=== PATIENT | female | born 1985 | race Asian ===

== ENCOUNTER 2021-03-22 07:42 | Inpatient (IN) ==
[2021-03-22] MEDS ORDERED: OXYTOCIN 30 UNITS/500 ML BAG IV PRN ×3 (08:04→18:34)
[2021-03-22] MEDS ORDERED: DEXTROSE 5% 1,000 ML IV PRN (08:06)
[2021-03-22] MEDS ORDERED: SODIUM CHLORIDE 0.9% 1000ML 1,000 ML IV PRN (08:06)
[2021-03-22] MEDS ORDERED: DEXTROSE 50% 50 ML SYRINGE IV PRN (08:06)
[2021-03-22] MEDS ORDERED: INSULIN REGULAR 250 UNITS in SODIUM CHLORIDE 0.9% 247.5 ML IV PRN ×3 (08:15→11:06)
[2021-03-22 08:37] LABS: Hematocrit (blood only) 37.4 % (37-47); Hemoglobin 12.8 g/dL (12.0-16.0); Mean Corpuscular Hemoglobin 33.3 pg (25-34); Mean Corpuscular Hgb Conc 34.2 g/dL (32-36); Mean Corpuscular Volume 97.4 fL (80-100); Mean Platelet Volume 11.9 fL (7.4-10.4); Platelet Count 140 K/uL (130-400); RDW Coefficient of Variation 13.4 % (11.5-14.5); RDW Standard Deviation 46.9 fL (36.4-46.3); Red Blood Count 3.84 M/uL (4.2-5.4); White Blood Count 8.79 K/uL (4.8-10.8)
[2021-03-22] MEDS: LACTATED RINGER'S 1,000 ML IV PRN ×3 (09:41→16:34)
--- NOTE | 2021-03-22 13:29 | Labor Progress Brief Note ---
Date of Service March 22, 2021 Subjective Reason For Note: Routine Evaluation Assessment & Plan (1) Supervision of elderly multigravida: Plan: 36 yo at 39.3 weeks GA. IOL for A2gDM 1. Fetus: Cat 1 2. Labor: Continue Pitocin, AROM clr. 3. Vitals: WNL 4. GBS Neg (2) Hepatitis B affecting : (3) Insulin controlled gestational diabetes mellitus (GDM) during : Admission and Anticipated Discharge Date Admission Date: March 22, 2021 Physical Exam Genitourinary: Manual OB Exam: + cervical dilation 2 cm, + cervical effacement 60% and + station -2 OB Exam Monitor Tracing: + external FHT monitor used, + external uterine monitor used, + category I and + normal FHT variability Results & Data ([facility]) Vital Signs (Past 12 Hours) Vital Signs Temp Pulse Resp BP 03/22/21 12:35 75 108/72 03/22/21 11:30 70 109/69 03/22/21 11:29 36.6 C 18 03/22/21 10:27 83 118/80 03/22/21 09:45 87 120/75 03/22/21 08:15 37.1 C 99 H 20 121/73 03/22/21 08:14 37.1 C 99 H 20 121/73 03/22/21 08:02 99 H 121/73 Coding Level of Care Code None Diagnoses Supervision of elderly multigravida O09.529 Hepatitis B affecting O98.419; B19.10 Insulin controlled gestational diabetes mellitus (GDM) during O24.414
[2021-03-22] MEDS ORDERED: BUPIVACAINE 0.25% 30 ML VIAL ONE (15:10)
[2021-03-22] MEDS ORDERED: ePHEDrine sulfate 50 MG/ML AMP ONE (15:10)
[2021-03-22] MEDS ORDERED: SODIUM CHLORIDE 0.9% INJ 10 ML VIAL ONE (15:10)
[2021-03-22] MEDS ORDERED: fentaNYL citrate 100 MCG/2 ML VIAL ONE (15:10)
[2021-03-22] MEDS ORDERED: fentaNYL 2MCG/ML ROPIVACAINE 1.25MG/ML 100 ML BAG EPI ONE (15:11)
[2021-03-22] MEDS ORDERED: ONDANSETRON INJ 2 MG/ML 2 ML VIAL IV PRN (15:38)
[2021-03-22] MEDS ORDERED: NALBUPHINE HCL INJ 10 MG/ML AMP IV PRN (15:38)
[2021-03-22] MEDS ORDERED: NALOXONE HCL 0.4 MG/1 ML VIAL/CARP IV PRN (15:38)
[2021-03-22] MEDS ORDERED: diphenhydrAMINE 50 MG/ML VIAL IV PRN (15:38)
[2021-03-22] MEDS ORDERED: ePHEDrine sulfate 50 MG/ML AMP IV PRN (15:38)
[2021-03-22] MEDS ORDERED: fentaNYL 2MCG/ML ROPIVACAINE 1.25MG/ML 100 ML BAG EPI PRN (15:38)
[2021-03-22] MEDS ORDERED: NALOXONE HCL 1 MG in SODIUM CHLORIDE 0.9% 1000ML 1,000 ML IV PRN (15:38)
--- NOTE | 2021-03-22 15:46 | Anesthesiology Consultation ---
Date of Service March 22, 2021 Assessment & Plan Chart Review Chart Review: Patient NOT seen in Pre Admission Testing and Acceptable Risk for Labor Epidural Consults Requested none ASA ASA2 Proposed Anesthesia Anesthesia Type: Labor Epidural and CSE Risk / Benefits Reviewed With: PT / POA / Parent / Guardian, Accepts Plan and Informed Consent Obtained History Height/Weight Height: 5 ft 3 in Weight: 73.028 kg Allergies Allergy/AdvReac Type Severity Reaction Status Date / Time No Known Allergies Allergy Verified 03/22/21 08:12 Medications Home Medications Medication Instructions Recorded Confirmed Last Taken prenat.vits,pari,axr-dppt-svito 1 tab PO DAILY 09/11/20 03/22/21 03/21/21 08:00 acetone (urine) test (Ketone Urine #50 ea 09/22/20 03/21/21 Unknown Test) blood sugar diagnostic (OneTouch #150 ea 09/22/20 03/21/21 Unknown Verio test strips) blood-glucose meter (OneTouch #1 ea 09/22/20 03/21/21 Unknown Verio Meter) lancets 33 gauge (OneTouch Delica #150 ea 09/22/20 03/21/21 Unknown Plus Lancet) breast pump #1 ea 02/19/21 03/21/21 Unknown breast pump #1 ea 03/01/21 03/21/21 Unknown pen needle, diabetic 32 gauge x #100 ea 03/05/21 03/21/21 Unknown 5/32" (BD Ultra-Fine Olivia Pen Needle) Active Medications Generic Name Dose Route Start Last Admin Trade Name Freq PRN Reason Stop Dose Admin Oxytocin 30 units in 500 mls @ 15 mls/hr 03/22/21 08:04 03/22/21 13:57 Pitocin IV 03/24/21 08:03 0.9 units/hr .Q24H PRN 15 mls/hr Labor Induction/Augmentation Titration Protocol 0.9 UNITS/HR Lactated Ringer's 1,000 mls @ 125 mls/hr 03/22/21 08:04 03/22/21 15:27 Lr IV 03/24/21 08:03 999 mls/hr .Q8H PRN Administration L&D Protocol Protocol Dextrose 1,000 mls @ 100 mls/hr 03/22/21 08:06 03/22/21 11:35 D5w IV 04/21/21 08:05 0 mls/hr .Q10H PRN Infusion BSG 180 or below Protocol NPO Date Last Intake of Fluids: 03/22/21 Time Last Intake of Fluids: 14:00 Date Last Intake of Solids: 03/22/21 Time Last Intake of Solids: 08:00 Past Medical History Medical History No known health problems Exercise / Class Metabolic Activity II 4-5 Yardwork/Stairs/Walk up hill Past Family History Family History Father Diabetes Hypertension Liver disease Hepatitis B Mother Hypertension Hepatitis B Brother Hepatitis B Past Surgical History Surgical History No history of previous surgery Past Anesthesia History No Hx of Anesthesia Complications and No Family Hx of Anesthesia Complications History of PONV No Hx of PONV and No Hx of Motion Sickness Social History Smoking Status: Never smoker Hx Alcohol Use: No Hx Substance Use: No Review of Systems no chest pain or sob Physical Exam Vital Signs Last Vital Signs Temp 36.4 C L 03/22/21 15:01 Pulse 78 03/22/21 15:40 Resp 20 03/22/21 15:01 BP 117/75 03/22/21 15:02 Pulse Ox 99 03/22/21 15:40 ENMT Mouth: no TMJ abnormality Thyromental Distance: > or= 3.5 Finger Breadths Mallampati Class: II Neck normal visual inspection Respiratory normal respiratory effort Auscultation: lungs clear to auscultation bilaterally Cardiovascular Rate/Rhythm: regular rate and regular rhythm Musculoskeletal Spine: normal cervical ROM Neurologic moves all extremities Psychiatric Orientation: alert and oriented x 3 Testing Laboratory Results 03/22/21 08:20 03/22/21 03/22/21 03/22/21 15:01 13:00 12:04 POC Glucose 88 105 H 82 03/22/21 03/22/21 03/22/21 10:57 09:47 08:54 POC Glucose 100 H 109 H 118 H
[2021-03-22] MEDS ORDERED: HYDROCORTISONE ACETATE 25 MG SUPP PR PRN (18:34)
[2021-03-22] MEDS ORDERED: DIPHTHERIA/TETANUS/PERTUSSIS 0.5 ML SYR/VIAL IM ONE (18:34)
[2021-03-22] MEDS ORDERED: ACETAMINOPHEN 325 MG TAB PO PRN (18:34)
[2021-03-22] MEDS ORDERED: SUPERCREAM 0.870% 15 GM JAR EXT PRN (18:34)
--- NOTE | 2021-03-22 19:36 | Anesthesia Procedure Note ---
Date of Service March 22, 2021 Anesthesia Post Epidural Note Vital Signs Vital Signs: Temp Pulse Resp BP Pulse Ox 36.6 C 75 20 117/56 L 99 03/22/21 17:02 03/22/21 19:32 03/22/21 18:47 03/22/21 19:32 03/22/21 19:00 Pain Intensity Abdomen: Pain Intensity: 0 Notes Mental Status: alert / awake / arousable and participated in evaluation Nausea / Vomiting: adequately controlled Pain: adequately controlled Airway Patency, RR, SpO2: stable & adequate BP & HR: stable & adequate Hydration State: stable & adequate Neuraxial Anesthesia: was administered and sensory block is resolving Anesthetic Complications: no major complications apparent and Pt Satisfied with anesthetic care Epidural: Removed without complications and With tip intact
--- NOTE | 2021-03-22 19:49 | Delivery Summary ---
DATE OF SERVICE: 03/22/2021 PROCEDURE: Normal spontaneous vaginal delivery with first-degree perineal laceration repair. SURGEON: Matt Meza MD. ESTIMATED BLOOD LOSS: 200 mL. DRAINS: None. FLUIDS: Continuous lactated Ringer. URINE OUTPUT: Not measured. COMPLICATIONS: None. PREOPERATIVE DIAGNOSES: 1. Single intrauterine at 39 weeks 3 days gestational age. 2. Insulin-dependent gestational diabetes. 3. Hepatitis B positive. 4. Advanced maternal age. POSTOPERATIVE DIAGNOSES: 1. Single intrauterine at 39 weeks 3 days gestational age. 2. Insulin-dependent gestational diabetes. 3. Hepatitis B positive. 4. Advanced maternal age. 5. Status post delivery. HOSPITAL COURSE: The patient was admitted at 39 weeks 2 days gestational age for induction of labor. The patient was placed on oxytocin per regular protocol and underwent artificial rupture of membran es. She later received an epidural for anesthesia and progressed to complete-complete, +2 station, a t which time she felt the urge to push and pushed over approximately 1 contraction to achieve deliver y. DESCRIPTION OF PROCEDURE: The patient progressed to 10 cm dilated, 100% effaced, positive 2 station, pushed over intact perineum with epidural anesthesia, delivered a viable male with weight pen ding, Apgars of 9 and 9 at one and five minutes respectively. Head of the delivered in JYOTSNA p osition, restituted to left transverse. No nuchal cord was noted. Body and shoulders quickly follow ed. was noted to be vigorous upon delivery and a 1 minute delayed cord clamping was initiate d. Cord was then double clamped and cut. remained on maternal abdomen and continued to be v igorous. Cord blood was obtained. Attention was then turned to delivery of the placenta, which was delivered intact, 3-vessel cord, gentle cord traction. On inspection of the perineum, vagina, and ce rvix, there was noted to be a small first-degree perineal laceration, which was repaired with 3-0 Abhi ryl in continuous running stitch. Needle, sponge, and instrument counts were correct at the completi on of the case. Both mother and were stable in the immediate post-delivery period. Job ID: [id number]
[2021-03-22] MEDS: DOCUSATE SODIUM 100 MG CAP PO SCH (20:51)
[2021-03-22] MEDS: BENZOCAINE 20% AER SPR 82.5 GM CAN EXT PRN (20:55)
[2021-03-23] MEDS: IBUPROFEN 600 MG TAB PO PRN ×3 (02:15→19:38)
--- NOTE | 2021-03-23 07:54 | Obstetrical Progress Note ---
Date of Service March 23, 2021 Assessment & Plan (1) Encounter for care and examination after delivery: 36yo day 1 s/p . Doing well. Stable for discharge this evening if preferred Subjective Ambulation: ambulating normally Voiding: no voiding problems Passing Gas:: Yes Diet Tolerance:: regular diet Lochia:: Moderate Feeding Type:: breast feeding Physical Exam Constitutional WD/WN, vitals as above Respiratory normal respiratory effort; no respiratory distress and no labored breathing Gastrointestinal (Abdomen) Inspection/Auscultation: abdomen normal to inspection; abdomen not distended Percussion/Palpation: abdomen soft; abdomen nontender, no guarding and abdomen not rigid Genitourinary OB Exam Abdomen: + fundal height Fundus: + firm and + relation to umbilicus (Below); not tender or not boggy Results & Data ([facility]) Vital Signs (Past 12 Hours) Vital Signs Temp Pulse Pulse Resp BP BP 03/23/21 04:40 36.4 C L 71 16 108/66 03/23/21 00:40 36.4 C L 67 18 110/70 03/22/21 21:30 36.5 C 96 H 18 118/77 03/22/21 20:33 80 109/62 03/22/21 20:02 76 121/69
[2021-03-23] MEDS: DOCUSATE SODIUM 100 MG CAP PO SCH ×2 (08:48→19:38)
[2021-03-23] MEDS: PRENATAL VITAMIN 1 TAB PO SCH (08:48)
[2021-03-23] MEDS: FERROUS SULFATE 325 MG TAB PO SCH (08:48)
[2021-03-23] MEDS ORDERED: bisacodyL 5 MG TABEC PO SCH (20:00)
[2021-03-24] MEDS ORDERED: bisacodyL 10 MG SUPP PR PRN (06:00)
--- NOTE | 2021-03-24 06:10 | Obstetrical Progress Note ---
Date of Service <Lionel Stanley MD - Last Filed: 03/24/21 08:02> March 24, 2021 Assessment & Plan <Lionel Stanley MD - Last Filed: 03/24/21 08:02> (1) Encounter for care and examination after delivery: 36 yo now PPD2 from at 39wk3d, complicated by Hep B carrier status and GDMA2 -Discharge today to [facility] due to continued monitoring of baby by pediatrics for persistent jaundice receiving phototherapy, d/c discussed with patient -Vitals reviewed- HDS, afebrile -Blood type A+, GBS-, Rubella immune -Encourage ambulation, regular diet -Pain control with ibuprofen, acetaminophen PRN -Encourage -Hgb 12.8 on admission -F/u in 6 weeks with OB <Yenni Macias DO - Last Filed: 03/24/21 08:36> (1) Encounter for care and examination after delivery: Subjective <Lionel Stanley MD - Last Filed: 03/24/21 08:02> Ambulation: ambulating normally Voiding: no voiding problems Passing Gas:: Yes Diet Tolerance:: regular diet Lochia:: Small Feeding Type:: breast feeding Current Pain Level(1-10): 4 Pt and baby doing well, no acute events. Has passed BM. Experiencing moderate back pain attributed to multiple epidural access attempts. Pain responds well to PRN medication. Review of Systems Reports back pain from multiple epidural access attempts Denies fevers/chills. Denies dyspnea, cough. Denies chest pain. Denies breast pain or discharge. Denies dysuria. Denies headache.. Physical Exam <Lionel Stanley MD - Last Filed: 03/24/21 08:02> General: Alert, oriented, no acute distress Cardiac: Regular rate and rhythm, normal S1, S2. No murmurs appreciated. Respiratory: Clear to auscultation b/l with good air flow entry, symmetric chest rise and fall. No wheezes or crackles. No increased work of breathing or accessory muscle use Abdomen: Soft, nontender, nondistended. Fundus firm and palpable at 2 cm below umbilicus. No guarding or rebound. Skin: No rashes or lesions Extremities: Warm, dry, well-perfused with capillary refill <2s b/l. No lower extremity edema, erythema or swelling. Negative Shreya's sign b/l. Results & Data ([facility]) <Lionel Stanley MD - Last Filed: 03/24/21 08:02> Vital Signs (Past 12 Hours) Vital Signs Temp Pulse Resp BP Pulse Ox 03/23/21 23:14 36.6 C 77 16 105/66 98 03/23/21 19:05 36.5 C 78 16 110/71 98 <Yenni Macias DO - Last Filed: 03/24/21 08:36> Co-Signing Physician Notes Resident Physician Supervision Note: I was present with Dr. James during the history and exam. I discussed the case with the resident and agree with the findings and plan as documented in the note. Any exceptions or clarifications are listed here: PPD#2 doing well. DC instructions reviewed. Documented By: Yenni Macias DO Resident Activity Tracking <Lionel Stanley MD - Last Filed: 03/24/21 08:02> Resident Involvement: Resident Care Provided Care Provided: OB Delivery
[2021-03-24] MEDS: FERROUS SULFATE 325 MG TAB PO SCH (08:14)
[2021-03-24] MEDS: DOCUSATE SODIUM 100 MG CAP PO SCH (08:14)
[2021-03-24] MEDS: PRENATAL VITAMIN 1 TAB PO SCH (08:14)
[2021-03-24] MEDS: BENZOCAINE 20% AER SPR 82.5 GM CAN EXT PRN (16:42)
[2021-03-24] MEDS: IBUPROFEN 600 MG TAB PO PRN (16:42)
== END 2021-03-24 18:27 | disposition home or self-care (01) | DRG 806 ==
LOC: 4S1 07:42 → 4S2 21:00

== ENCOUNTER 2022-08-31 12:18 | Inpatient (IN) ==
[2022-08-31] MEDS ORDERED: ACETAMINOPHEN 1,000 MG/100 ML VIAL IV STA (12:42)
[2022-08-31] MEDS ORDERED: SODIUM CHLORIDE 0.9% 1000ML 1,000 ML IV STA (12:42)
[2022-08-31] MEDS ORDERED: MoRPHine SULFATE 4 MG/ML 1 ML CARP\\VIAL IV STA (12:42)
--- NOTE | 2022-08-31 12:47 | Emergency Department Note ---
Impression & Plan Acute appendicitis, Abdominal pain ED Provider Note NAME: AKIRA DAVIS AGE: 37 SEX: F : 1985 ARRIVES VIA: Walk-In INFORMANT: Patient, ED PROVIDER(S): Prieto Lakhani DO CHIEF COMPLAINT: Abdominal pain HPI: Patient is a 37-year-old female who presented to the emergency department for an evaluation of abdominal pain. The patient is and has had only a few menstrual cycle since her . She continues to breast-feed. She is currently on her menses but she started to develop symptoms of abdominal pain and flank pain over the last few days. She was seen at [facility] and had a urinalysis but this did not show any signs of infection so she was sent to the emergency department for further evaluation. Patient does describe some dysuria. She does complain of nausea but no vomiting. She said no diarrhea. ROS: See above HPI for pertinent positives & negatives. A total of 10 systems reviewed and were otherwise negative. PAST MEDICAL HISTORY: See Below PAST SURGICAL HISTORY: See Below FAMILY HISTORY: See Below SOCIAL HISTORY: See Below HOME MEDICATIONS: See Below ALLERGIES: See Below VITALS: See Below PHYSICAL EXAMINATION: GENERAL: The patient is awake and alert. She is somewhat anxious appearing. She appears to be uncomfortable. EYES: The conjunctivae are clear. The pupils are round and reactive. EARS, NOSE, MOUTH AND THROAT: The nose is without any evidence of any deformity. NECK: The neck is nontender and supple. RESPIRATORY: Normal respiratory effort is noted there is no evidence of wheezing rhonchi or rales CARDIOVASCULAR: Regular rate and rhythm noted there no murmurs rubs or gallops normal S1 normal S2. GASTROINTESTINAL: The abdomen is soft and mildly distended. There is significant right upper and right lower quadrant tenderness to palpation. There is mild guarding. MUSCULOSKELETAL/EXTREMITIES: There is no evidence of gross deformity full range of motion is noted in the hips and shoulders. SKIN: There is no obvious evidence of any rash. There are no petechiae, pallor or cyanosis noted. NEUROLOGIC: Patient is awake alert and oriented x3 MEDICAL DECISION MAKING: The patient is a 37-year-old female who presented to the emergency department for an evaluation of right lower quadrant abdominal pain. The patient had gradually worsening pain over the course the last 3 to 4 days. History and phys ical exam appear to be consistent with acute appendicitis. She was found have an elevation in white blood cell count. She was found to have signs of appendicitis on CT. I discussed patient's laboratory and radiographic studies with her. She was treated with IV fluids as well as pain medication. She was reevaluated multiple times. The patient was amenable to evaluation by the surgeon. I discussed her condition with the on-call general surgeon. They have agreed to evaluate the patient in the emergency department for further management and disposition. Triage Nursing notes reviewed. Prior medical records reviewed Vital Signs: reviewed and remarkable for no significant abnormalities Differential diagnosis: Etiologies such as appendicitis, diverticulitis, obstruction, inflammatory bowel disease, renal colic, PUD, biliary pathology, pancreatitis, mesenteric ischemia, aortic pathology, infections, genitourinary, UTI, perforated viscus, as well as others were entertained. ER treatment provided: See below Diagnostics interpreted by me: ECG: none Cardiac Monitoring: An order was placed for continuous cardiac monitoring. The monitor shows a rate of 62 bpm with sinus rhythm Laboratory studies: As stated above and show below. Imaging studies: See below. Radiographic imaging was reviewed by myself Consultation(s): I discussed this case with Dr. Beckman who is on-call for general surgery. 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 Required: No Beliefs That Will Affect Care: None marital status: marital status details: Francesco (30) [phone] Current Living Situation: Spouse Current Living Situation Comment: lives with spouse and children, no pets 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: employed current occupation: [employer] Feels Safe at Home: Yes Assistive Devices: Glasses Allergies Allergies Allergy/AdvReac Type Severity Reaction Status Date / Time No Known Allergies Allergy Verified 05/03/21 10:50 Home Meds Home Medications Medication Instructions Recorded Confirmed prenat.vits,pari,[id number]-jpnbe 1 tab PO DAILY 09/11/20 05/03/21 Previous Rx's Medication Instructions Recorded sertraline 25 mg tablet 25 mg PO DAILY #90 tabs 06/14/21 Results & Data (ED) Vital Signs Vital Signs - 24 hr 08/31/22 12:23 08/31/22 12:55 Temperature 36.8 C Temperature Source Temporal Artery Scan Pulse Rate 77 62 Pulse Rhythm Regular Respiratory Rate 18 18 Blood Pressure 110/76 Blood Pressure Mean 87 Pulse Oximetry 99 97 Oxygen Delivery Method Room Air Room Air Sepsis Recent Fever Within 48 Hours No Sepsis New/Unexplained Change in Mental Status No Sepsis Action Taken by Nursing No Action Required Home Medications Current Medication List: was personally reviewed by me Laboratory Data Attestation: I reviewed the patient's lab results. 08/31/22 12:50 08/31/22 12:50 Lab Results 08/31/22 08/31/22 08/31/22 Range/Units 12:50 12:50 12:50 WBC 12.22 H (4.8-10.8) K/ul RBC 4.62 (4.20-5.40) M/uL Hgb 14.3 (12.0-16.0) g/dl POC Hgb (12.0-16.0) g/dl Hct 41.1 (37.0-47.0) % POC Hct (37-47) % MCV 89.0 (80.0-100.0) fL MCH 31.0 (25.0-34.0) pg MCHC 34.8 (32.0-36.0) g/dL RDW Std Deviation 39.9 (36.4-46.3) fL RDW Coeff of Zoey 12.1 (11.5-14.5) % Plt Count 267 (130-400) K/uL MPV 10.6 (9.4-12.4) fL Immature Gran % (Auto) 0.3 % Neut % (Auto) 67.3 % Lymph % (Auto) 25.0 % Casey % (Auto) 5.9 % Eos % (Auto) 1.3 % Baso % (Auto) 0.2 % Neut # (Auto) 8.21 H (1.40-6.50) K/uL Lymph # (Auto) 3.06 (1.2-3.4) K/uL Casey # (Auto) 0.72 H (0.11-0.59) K/uL Eos # (Auto) 0.16 (0-0.50) K/uL Baso # (Auto) 0.03 (0-0.2) K/uL Immature Gran # (Auto) 0.04 (0.01-0.20) K/uL POC Sodium (135-144) mmol/L Sodium 137 (136-145) mmol/L POC Potassium (3.3-5.0) mmol/L Potassium 3.4 L (3.5-5.1) mmol/L POC Chloride (101-112) mmol/L Chloride 102 (98-107) mmol/L Carbon Dioxide 30 (21-32) mmol/L POC Total CO2 (24-31) mmol/L Anion Gap 5 (3-11) POC Anion Gap (16-25) mmol/L POC BUN (7-18) mg/dl BUN 9 (6-23) mg/dl Creatinine 0.63 (0.6-1.2) mg/dl POC Creatinine (0.6-1.3) mg/dl Est Cr Clr Drug Dosing 109.4 ml/min Est GFR ( Amer) 131.9 ml/min Est GFR (Non-Af Amer) 113.8 ml/min BUN/Creatinine Ratio 14.3 (10-20) Glucose 114 H (70-99(Fasting)) mg/dl POC Glucose (other) (70-99) mg/dl Calcium 9.6 (8.5-10.1) mg/dl POC Ioniz Calcium Harsh (1.12-1.32) mmol/l Total Bilirubin 0.3 (0.2-1.0) mg/dl AST 16 (13-39) U/L ALT 14 (7-52) U/L Alkaline Phosphatase 45 (34-104) U/L Total Protein 8.2 (6.0-8.3) gm/dl Albumin 4.4 (3.4-5.0) gm/dl Globulin 3.8 (2.5-4.0) gm/dl Albumin/Globulin Ratio 1.2 (0.9-2) Lipase 16 (11-82) U/L HCG, Qual Negative (Negative) Urine Color Urine Appearance (Clear) Urine pH (4.5-7.5) Ur Specific [place] (1.000-1.030) Urine Protein (Negative) Urine Glucose (UA) (Negative) Urine Ketones (Negative) Urine Blood (Negative) Urine Nitrite (Negative) Urine Bilirubin (Negative) Urine Urobilinogen (Negative) Ur Leukocyte Esterase (Negative) Urine RBC (0-4) /hpf Urine WBC (0-5) /hpf Ur Epithelial Cells (0-5) /lpf Urine Bacteria (Negative) 08/31/22 08/31/22 Range/Units 12:50 13:06 WBC (4.8-10.8) K/ul RBC (4.20-5.40) M/uL Hgb (12.0-16.0) g/dl POC Hgb 13.3 (12.0-16.0) g/dl Hct (37.0-47.0) % POC Hct 39 (37-47) % MCV (80.0-100.0) fL MCH (25.0-34.0) pg MCHC (32.0-36.0) g/dL RDW Std Deviation (36.4-46.3) fL RDW Coeff of Zoey (11.5-14.5) % Plt Count (130-400) K/uL MPV (9.4-12.4) fL Immature Gran % (Auto) % Neut % (Auto) % Lymph % (Auto) % Casey % (Auto) % Eos % (Auto) % Baso % (Auto) % Neut # (Auto) (1.40-6.50) K/uL Lymph # (Auto) (1.2-3.4) K/uL Casey # (Auto) (0.11-0.59) K/uL Eos # (Auto) (0-0.50) K/uL Baso # (Auto) (0-0.2) K/uL Immature Gran # (Auto) (0.01-0.20) K/uL POC Sodium 140 (135-144) mmol/L Sodium (136-145) mmol/L POC Potassium 3.3 (3.3-5.0) mmol/L Potassium (3.5-5.1) mmol/L POC Chloride 102 (101-112) mmol/L Chloride (98-107) mmol/L Carbon Dioxide (21-32) mmol/L POC Total CO2 28 (24-31) mmol/L Anion Gap (3-11) POC Anion Gap 15.0 L (16-25) mmol/L POC BUN 8 (7-18) mg/dl BUN (6-23) mg/dl Creatinine (0.6-1.2) mg/dl POC Creatinine 0.6 (0.6-1.3) mg/dl Est Cr Clr Drug Dosing ml/min Est GFR ( Amer) ml/min Est GFR (Non-Af Amer) ml/min BUN/Creatinine Ratio (10-20) Glucose (70-99(Fasting)) mg/dl POC Glucose (other) 109 H (70-99) mg/dl Calcium (8.5-10.1) mg/dl POC Ioniz Calcium Harsh 1.13 (1.12-1.32) mmol/l Total Bilirubin (0.2-1.0) mg/dl AST (13-39) U/L ALT (7-52) U/L Alkaline Phosphatase (34-104) U/L Total Protein (6.0-8.3) gm/dl Albumin (3.4-5.0) gm/dl Globulin (2.5-4.0) gm/dl Albumin/Globulin Ratio (0.9-2) Lipase (11-82) U/L HCG, Qual (Negative) Urine Color Yellow Urine Appearance Clear (Clear) Urine pH 7.0 (4.5-7.5) Ur Specific [place] 1.002 (1.000-1.030) Urine Protein Negative (Negative) Urine Glucose (UA) Negative (Negative) Urine Ketones Negative (Negative) Urine Blood 3+ H (Negative) Urine Nitrite Negative (Negative) Urine Bilirubin Negative (Negative) Urine Urobilinogen Negative (Negative) Ur Leukocyte Esterase Negative (Negative) Urine RBC 0-4 (0-4) /hpf Urine WBC 0-5 (0-5) /hpf Ur Epithelial Cells 0-5 (0-5) /lpf Urine Bacteria Negative (Negative) Administered Medications Discontinued Medications Sodium Chloride (Nss 1000ml) 1,000 mls @ 999 mls/hr IV .Q1H1M STA Stop: 08/31/22 13:42 Last Infusion: 08/31/22 13:56 Dose: 0 mls/hr Documented By: Admin: 08/31/22 13:01 Dose: 999 mls/hr Documented By: APRYL Acetaminophen (Ofirmev) 1,000 mg in 100 mls @ 400 mls/hr IV NOW STA Stop: 08/31/22 12:56 Last Infusion: 08/31/22 13:56 Dose: 0 mls/hr Documented By: Admin: 08/31/22 13:14 Dose: 400 mls/hr Documented By: APRYL Ioversol (Optiray 350 100ml) 88 ml IV ONCE ONE Stop: 08/31/22 14:16 Last Admin: 08/31/22 14:16 Dose: 88 ml Documented By: KALE Morphine Sulfate (Morphine Sulfate 4 Mg/Ml 1 Ml Carp\Vial) 4 mg IV NOW STA Stop: 08/31/22 12:43 Last Admin: 08/31/22 13:12 Dose: 4 mg Documented By: APRYL Imaging Data Radiologist's Impression: Abdomen/Pelvis CT 08/31/22 12:[address] WITH IV CONTRAST CT DOSE: 290.23 mGy.cm HISTORY: Acute right lower quadrant abdominal pain RLQ Pain TECHNIQUE: Multiaxial CT images of the abdomen and pelvis were performed following the IV administration of 88 cc of Optiray, A dose lowering technique was utilized adhering to the principles of ALARA. COMPARISON STUDY: None. FINDINGS: Clear lung bases. No pneumatosis or pneumoperitoneum. Unremarkable spleen, pancreas, gallbladder, adrenal glands and liver. Patent portal vein. Unremarkable kidneys. No hydronephrosis. Distended urinary bladder with mild wall thickening and perivesicular stranding. Uterus and adnexa are unremarkable. Small amount of free pelvic fluid. Aorta and IVC are unremarkable. No lymphadenopathy identified. No bowel obstruction. Mild colonic fecal retention. The appendix is dilated with wall thickening and mucosal hyperemia measuring up to 1.3 cm transversely. There is mild irregularity of the appendiceal wall the mid to distal portion. Considerable periappendiceal inflammation with trace free fluid. No abscess. Likely reactive wall thickening of the adjacent cecum and small bowel. Small bowel air-fluid levels the right lower quadrant mesenteric along with subcentimeter lymph nodes. Minimal lumbar levoscoliosis. No acute fracture. IMPRESSION: 1. Acute appendicitis without pneumoperitoneum or abscess. There is irregularity of the appendiceal wall which may represent intraluminal necrosis. Surgical consultation is needed. 2. Small bowel air-fluid levels within the abdominal right lower quadrant suggestive of a reactive ileus. 3. No bowel obstruction. ACT 112: Negative or not required by law. The above report was generated using voice recognition software. It may contain grammatical, syntax or spelling errors. Electronically signed by: Matt Marinelli M.D. 08/31/2022 2:52 PM Discharge Plan Visit Data Chief Complaint: Abdominal Pain Stated Complaint: RIGHT SIDE ABD, RIGHT BACK PAIN, REF OVER ED Provider: Prieto Lakhani Discharge Problem: Acute appendicitis, Abdominal pain Patient Disposition: Being Evaluated by Hospitalist Forms Stand Alone Forms: My Odimax Prescriptions Prescriptions: No Action sertraline 25 mg tablet 25 mg PO DAILY Qty: 90 3RF prenat.vits,pari,[id number] Tablet 1 tab PO DAILY Referrals Referrals: PCP,NO [Primary Care Provider] -
[2022-08-31 13:12] LABS: Appearance Urine Clear (Clear); Bilirubin Urine Negative (Negative); Blood Urine 3+ (Negative); Color Urine Yellow; Glucose Urine UA Negative (Negative); Ketones Urine Negative (Negative); Leukocyte Esterase Urine Negative (Negative); Nitrite Urine Negative (Negative); Protein Urine Negative (Negative); Specific Gravity Urine 1.002 (1.000-1.030); Urobilinogen Urine Negative (Negative)
[2022-08-31 13:16] LABS: Basophils # (auto) 0.03 K/uL (0-0.2); Basophils % (auto) 0.2 %; Eosinophils # (auto) 0.16 K/uL (0-0.50); Eosinophils % (auto) 1.3 %; Hematocrit (blood only) 41.1 % (37.0-47.0); Hemoglobin 14.3 g/dl (12.0-16.0); Immature Granulocytes # (auto) 0.04 K/uL (0.01-0.20); Immature Granulocytes % (auto) 0.3 %; Lymphocytes # (auto) 3.06 K/uL (1.2-3.4); Mean Corpuscular Hgb Conc 34.8 g/dL (32.0-36.0); Mean Platelet Volume 10.6 fL (9.4-12.4); Monocytes # (auto) 0.72 K/uL (0.11-0.59); Monocytes % (auto) 5.9 %; Neutrophils # (auto) 8.21 K/uL (1.40-6.50); Neutrophils % (auto) 67.3 %; Platelet Count 267 K/uL (130-400); RDW Coefficient of Variation 12.1 % (11.5-14.5); RDW Standard Deviation 39.9 fL (36.4-46.3); Red Blood Count 4.62 M/uL (4.20-5.40); White Blood Count 12.22 K/ul (4.8-10.8)
[2022-08-31 13:19] LABS: iSTAT Creatinine 0.6 mg/dl (0.6-1.3); iSTAT Hemoglobin 13.3 g/dl (12.0-16.0); iSTAT Ionized Calcium 1.13 mmol/l (1.12-1.32); iSTAT Potassium 3.3 mmol/L (3.3-5.0)
[2022-08-31 13:30] LABS: Albumin Globulin Ratio 1.2 (0.9-2); Albumin Level 4.4 gm/dl (3.4-5.0); BUN Creatinine Ratio 14.3 (10-20); Bilirubin,Total 0.3 mg/dl (0.2-1.0); Calcium 9.6 mg/dl (8.5-10.1); Creatinine Clr Calc Pharmacy 109.4 ml/min; Est GFR (African American) 131.9 ml/min; Est GFR (Non-African American) 113.8 ml/min; Globulin 3.8 gm/dl (2.5-4.0); Potassium 3.4 mmol/L (3.5-5.1); Total Protein 8.2 gm/dl (6.0-8.3)
[2022-08-31 13:42] LABS: Pregnancy Test, Serum Negative (Negative)
[2022-08-31 14:12] LABS: Bacteria Urine Negative (Negative); Epithelial Cell Urine 0-5 /lpf (0-5); RBC Urine 0-4 /hpf (0-4); WBC Urine 0-5 /hpf (0-5)
[2022-08-31] MEDS ORDERED: OPTIRAY 350 100ml IV ONE (14:15)
--- NOTE | 2022-08-31 14:55 | CT Scan Report ---
ABDOMEN AND PELVIS CT WITH IV CONTRAST CT DOSE: 290.23 mGy.cm HISTORY: Acute right lower quadrant abdominal pain RLQ Pain TECHNIQUE: Multiaxial CT images of the abdomen and pelvis were performed following the IV administrat ion of 88 cc of Optiray, A dose lowering technique was utilized adhering to the principles of ALARA. COMPARISON STUDY: None. FINDINGS: Clear lung bases. No pneumatosis or pneumoperitoneum. Unremarkable spleen, pancreas, gallbl adder, adrenal glands and liver. Patent portal vein. Unremarkable kidneys. No hydronephrosis. Distend ed urinary bladder with mild wall thickening and perivesicular stranding. Uterus and adnexa are unrem arkable. Small amount of free pelvic fluid. Aorta and IVC are unremarkable. No lymphadenopathy identi fied. No bowel obstruction. Mild colonic fecal retention. The appendix is dilated with wall thickening and mucosal hyperemia measuring up to 1.3 cm transversely. There is mild irregularity of the appendiceal wall the mid to distal portion. Considerable periappendiceal inflammation with trace free fluid. No a bscess. Likely reactive wall thickening of the adjacent cecum and small bowel. Small bowel air-fluid levels the right lower quadrant mesenteric along with subcentimeter lymph nodes. Minimal lumbar levos coliosis. No acute fracture. IMPRESSION: 1. Acute appendicitis without pneumoperitoneum or abscess. There is irregularity of the appendiceal w all which may represent intraluminal necrosis. Surgical consultation is needed. 2. Small bowel air-fluid levels within the abdominal right lower quadrant suggestive of a reactive il eus. 3. No bowel obstruction. ACT 112: Negative or not required by law. The above report was generated using voice recognition software. It may contain grammatical, syntax o r spelling errors. Electronically signed by: Matt Marinelli M.D. 08/31/2022 2:52 PM
[2022-08-31] MEDS ORDERED: cefOXitin 2,000 MG/60 ML BAG IV STA (15:55)
--- NOTE | 2022-08-31 16:04 | History & Physical Report ---
Date of Service August 31, 2022 Assessment & Plan (1) Acute appendicitis: Plan: Plan is to proceed with laparoscopic appendectomy possible open Risk and complication of surgery was explained to the patient including bleeding infection injury to other organs Also explained to the patient that at times we treat appendicitis with antibiotics but I would not recommend that for her as she is very tender and plus the CAT scan shows he may have an area of possible wall necrosis All question answered Preoperative antibiotic ordered permit signed COVID test is negative Patient states she had a piece of chocolate earlier this morning before coming to the emergency room possibly about 10 or so Acute appendicitis type: with localized peritonitis Appendicitis abscess presence: without abscess Appendicitis gangrene presence: unspecified whether gangrene present Appendicitis perforation presence: without perforation Qualified Code(s): K35.30 - Acute appendicitis with localized peritonitis, without perforation or gangrene Plan Laparoscopic appendectomy possible open History of Present Illness Chief Complaint: Abdominal pain that started approximately 2 days ago with nausea but no emesis Primary Care Provider: NO PCP This pleasant 37-year-old female here with her significant other started developing lower abdominal pain approximately 48 hours ago with associated nausea she initially thought that it was related to her menses since she has not had a menstrual cycle of any routine since her she was seen by urgent care and referred here for CT scan showed findings of acute appendicitis possible some necrosis of the wall Allergies Allergy/AdvReac Type Severity Reaction Status Date / Time No Known Allergies Allergy Verified 05/03/21 10:50 Home Medications Medication Instructions Recorded Confirmed Type prenat.vits,pari,ptp-dvmq-zajhl 1 tab PO DAILY 09/11/20 05/03/21 History sertraline 25 mg tablet 25 mg PO DAILY #90 tabs 06/14/21 Rx Past Med/Surg History Medical History No known health problems Surgical History No history of previous surgery Family History Father Diabetes Hypertension Liver disease Hepatitis B Mother Hypertension Hepatitis B Brother Hepatitis B Social History Smoking Status: Never smoker Hx Alcohol Use: No Hx Substance Use: No Preferred Language: Mandarin Lithuanian Communication Ability: Effective Motor Checker Required: No Beliefs That Will Affect Care: None marital status: marital status details: Francesco (30) [phone] Current Living Situation: Spouse Current Living Situation Comment: lives with spouse and children, no pets 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: 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 Feels Safe at Home: Yes Assistive Devices: Glasses Review of Systems She denies any systemic disease overall health has been excellent she takes no routine medicines she was diagnosed as prediabetic She denies any previous surgical history Physical Exam Physical Exam: She is alert coherent here with significant other in no distress Sclera is nonicteric Oropharyngeal area moist There is no cervical lymphadenopathy Trachea midline Lungs no audible wheezing or rails Heart regular rate Abdomen soft not distended exquisitely tender right lower quadrant just inferior to McBurney's point No pedal edema Results & Data ([facility]) Vital Signs (Past 12 Hours) Vital Signs Temp Pulse Pulse Resp BP BP Pulse Ox 08/31/22 15:50 37.1 C 71 19 107/71 98 08/31/22 12:55 62 18 97 08/31/22 12:23 36.8 C 77 18 110/76 99 O2 Del Method 08/31/22 15:50 Room Air 08/31/22 12:55 Room Air 08/31/22 12:23 Room Air Laboratory Results Noted Diagnostic Findings CT scan report noted
[2022-08-31] MEDS ORDERED: NALOXONE HCL 1 MG in SODIUM CHLORIDE 0.9% 1000ML 1,000 ML IV PRN (16:31)
[2022-08-31] MEDS ORDERED: NALBUPHINE HCL INJ 10 MG/ML AMP IV PRN (16:31)
[2022-08-31] MEDS ORDERED: LACTATED RINGER'S 500 ML IV PRN (16:31)
[2022-08-31] MEDS ORDERED: HYDROmorphone INJ 0.5 MG/0.5 ML SYR IV PRN (16:31)
[2022-08-31] MEDS ORDERED: NALOXONE HCL 0.08 MG in SYRINGE 1.8 ML IV PRN (16:31)
[2022-08-31] MEDS ORDERED: diphenhydrAMINE 50 MG/ML VIAL IV PRN (16:31)
[2022-08-31] MEDS ORDERED: ONDANSETRON INJ 2 MG/ML 2 ML VIAL IV PRN (16:31)
[2022-08-31] MEDS ORDERED: ePHEDrine sulfate 50 MG/ML AMP IV PRN (16:31)
[2022-08-31] MEDS ORDERED: NALOXONE HCL 0.4 MG/1 ML VIAL/CARP IV PRN (16:31)
--- NOTE | 2022-08-31 16:34 | Anesthesiology Consultation ---
Date of Service August 31, 2022 Assessment & Plan Chart Review Chart Review: Acceptable Risk for Surgery Consults Requested none ASA [id number] Proposed Anesthesia Anesthesia Type: General Risk / Benefits Reviewed With: PT / POA / Parent / Guardian, Accepts Plan and Informed Consent Obtained History Surgery Operation Date: 08/31/22 16:00 Proposed Procedures p Laparoscopic Appendectomy - oJe Beckman MD, FACS Height/Weight Height: 5 ft 3 in Weight: 64.5 kg Allergies Allergy/AdvReac Type Severity Reaction Status Date / Time No Known Allergies Allergy Verified 05/03/21 10:50 Medications Home Medications Medication Instructions Recorded Confirmed Last Taken prenat.vits,pari,pkd-yfyb-jnajx 1 tab PO DAILY 09/11/20 05/03/21 03/21/21 08:00 sertraline 25 mg tablet 25 mg PO DAILY #90 tabs 06/14/21 Unknown NPO Date Last Intake of Fluids: 08/31/22 Time Last Intake of Fluids: 09:00 Date Last Intake of Solids: 08/31/22 Time Last Intake of Solids: 09:00 Past Medical History Medical History No known health problems Exercise / Class Metabolic Activity 1 > 8 Run/Swim/Ski/Tennis Past Family History Family History Father Diabetes Hypertension Liver disease Hepatitis B Mother Hypertension Hepatitis B Brother Hepatitis B Past Surgical History Surgical History No history of previous surgery Past Anesthesia History No Hx of Anesthesia Complications History of PONV No Hx of PONV Social History Smoking Status: Never smoker Hx Alcohol Use: No Hx Substance Use: No Physical Exam Vital Signs Last Vital Signs Temp 36.0 C L 08/31/22 18:55 Pulse 66 08/31/22 18:55 Resp 12 08/31/22 18:55 BP 111/54 L 08/31/22 18:55 Pulse Ox 100 08/31/22 18:55 O2 Del Method Oxymask 08/31/22 18:55 O2 Flow Rate 6 08/31/22 18:55 Constitutional no acute distress ENMT Thyromental Distance: > or= 3.5 Finger Breadths Mallampati Class: II Neck normal visual inspection Respiratory normal respiratory effort; no respiratory distress Auscultation: lungs clear to auscultation bilaterally Cardiovascular Rate/Rhythm: regular rate and regular rhythm Heart Sounds: no murmur Psychiatric Orientation: alert and oriented x 3 Testing Laboratory Results 08/31/22 12:50 08/31/22 12:50 Urine Color Yellow 08/31/22 12:50 Urine Appearance Clear (Clear) 08/31/22 12:50 Urine pH 7.0 (4.5-7.5) 08/31/22 12:50 Ur Specific [place] 1.002 (1.000-1.030) 08/31/22 12:50 Urine Protein Negative (Negative) 08/31/22 12:50 Urine Glucose (UA) Negative (Negative) 08/31/22 12:50 Urine Ketones Negative (Negative) 08/31/22 12:50 Urine Nitrite Negative (Negative) 08/31/22 12:50 Ur Leukocyte Esterase Negative (Negative) 08/31/22 12:50 Urine RBC 0-4 /hpf (0-4) 08/31/22 12:50 Urine WBC 0-5 /hpf (0-5) 08/31/22 12:50 Ur Epithelial Cells 0-5 /lpf (0-5) 08/31/22 12:50 08/31/22 13:06 POC Glucose (other) 109 H
[2022-08-31] MEDS ORDERED: SUCCINYLCHOLINE CHLORIDE 20 MG/ML 10 ML VIAL IV ONE (16:42)
[2022-08-31] MEDS ORDERED: PROPOFOL IV EMULSION 10 MG/ML 20 ML VIAL IV ONE (16:42)
[2022-08-31] MEDS ORDERED: fentaNYL citrate 100 MCG/2 ML VIAL ONE ×2 (16:44→16:46)
[2022-08-31] MEDS ORDERED: MIDAZOLAM HCL 1 MG/ML 2ML VIAL ONE (16:44)
[2022-08-31] MEDS ORDERED: DC INTRASPINAL MORPHINE SCH (16:45)
[2022-08-31] MEDS ORDERED: NO NARCOTICS OR SEDATIVES SCH (16:45)
[2022-08-31] MEDS ORDERED: SODIUM CHLORIDE 0.9% 1000ML 1,000 ML IV SCH (16:45)
[2022-08-31] MEDS ORDERED: LIDOCAINE 1%/EPINEPHRINE 1:100,000 50 ML VIAL ONE (17:21)
[2022-08-31] MEDS ORDERED: SURGICEL ABSORB HEMOSTAT 2IN X 14IN TOP ONE (18:31)
--- NOTE | 2022-08-31 18:51 | Post Operative Brief Note ---
Immediate Post Op Note v1 Date of Surgery August 31, 2022 Pre & Post Diagnosis Operation Date: 08/31/22 16:00 Pre-Op Diagnosis: (1) Acute appendicitis Post-Op Diagnosis: (1) Acute appendicitis I identified the patient and participated in the time-out.: Yes Procedure Operation Date: 08/31/22 16:00 Actual Procedures p Laparoscopic Appendectomy(Not Applicable) - Joe Beckman MD, FACS Surgeon Joe Beckman MD, FACS Oil Field Technician o Estimated Blood Loss 35 Findings Consistent with Post-Op Diagnosis
--- NOTE | 2022-08-31 19:19 | Anesthesiology Progress Note ---
Date of Service August 31, 2022 Anesthesia Post Procedure Vital Signs Vital Signs: Temp Pulse Pulse Pulse Resp BP BP 08/31/22 18:55 36.0 C L 66 12 111/54 L 08/31/22 15:50 37.1 C 71 19 107/71 08/31/22 12:55 62 18 08/31/22 12:23 36.8 C 77 18 110/76 Pulse Ox O2 Del Method O2 Flow Rate 08/31/22 18:55 100 Oxymask 6 08/31/22 15:50 98 Room Air 08/31/22 12:55 97 Room Air 08/31/22 12:23 99 Room Air Pain Intensity Right Lower Abdomen: Pain Intensity: 4 Notes Mental Status: alert / awake / arousable Patient Amnestic to Procedure: Yes Nausea / Vomiting: adequately controlled Pain: adequately controlled Airway Patency, RR, SpO2: stable & adequate BP & HR: stable & adequate Hydration State: stable & adequate Anesthetic Complications: no major complications apparent and Pt Satisfied with anesthetic care
--- NOTE | 2022-08-31 19:33 | Operative Report ---
PG Post Operative Report Pre & Post Diagnosis Operation Date: 08/31/22 16:00 Pre-Op Diagnosis: (1) Acute appendicitis Post-Op Diagnosis: (1) Acute appendicitis I identified the patient and participated in the time-out.: Yes Procedure Operation Date: 08/31/22 16:00 Actual Procedures p Laparoscopic Appendectomy(Not Applicable) - Joe Beckman MD, FACS The patient was brought into the operating theater general endotracheal anesthesia the abdomen was prepped Betadine solution and properly draped patient identified timeout was had systemic antibiotics on board this point we made a small incision supraumbilically sufficient to accommodate a Veress needle and a 5 mm trocar Veress needle was inserted first insufflated approximately 10 mmHg 5 mm trocar followed by the camera attention was turned to right lower quadrant after we point of entry there was no injury identified and immediately met with significant mount of fatty tissue surrounding all down towards the right gutter barely see the cecum (at this point I states this was a very difficult dissection throughout the procedure) we placed a 5 mm trocar in the right upper quadrant under direct visualization with preemptive local analgesic at this point used a grasper from that point to visualize to see if we could see the cecum we could see the colon and appeared to the cecum was right at the distal gutter proximal to the pelvic inlet on the regularization and then placed the camera right upper quadrant trocar site exchanged to 5 mm supra umbilical site by larger incision dilating the tract and placed a 12 mm trocar and a 5 mm trocar car was taken down the left lower quadrant with preemptive local using direct visualization position lateral to the rectus abdominis the patient was taken and turned to the left lateral position and we started dissecting what I thought was the cecum significant mount of fatty tissue overlapped the colon and cecal area we dissected this out try to find a border of the cecum and we were unsuccessful we were actually dissecting what appeared to be the white line of Toldt and some fatty infiltration in the lateral border coming through near the pelvic brim this made a very difficult dissection some bleeding was encountered just dissecting out this retroperitoneal fatty tissue and also incorporating the medial aspect of the colon did not look like mesenteric tissue at all further dissection and we were able to identify the colon that was overlapped the iliac vessels there was no fatty tissue appreciated there therefore we were able to elevate this up and identified that this was indeed the cecum down into that area the appendix was stuck to the peritoneal wall in the pelvic area that we freed this up with blunt dissection the appendix was acutely inflamed very thick and short but it was not ruptured at this point we are able to elevated and created a window between the mesoappendix and the base of the appendix throughout the procedure we used 10 mm clips and 5 mm clips to control any bleeding once we elevated the appendix which was short very thickened down to its base we placed a purple load and were able to resect the appendix taken part of the cecum with the the staple line was intact there was no bleeding appreciated the appendix was taken in an Endopouch and taken out through the umbilical port under direct visualization and handed off onto the table our attention was then we spent a considerable amount amount trying to control some oozing that was appreciated on initial dissection which is stated was signifi cant fatty tissue lateral and inferior to the colon did not see any direct visualization between the colon and the mesentery but it was very hard to distinguish between that and possible mesenteric area once hemostasis appear satisfactory I did place a piece of Surgicel covered this area mostly proximal to the gutter in the pelvic area we irrigated and suction any residual blood into the abdomen we were able to visualize that there was no active bleeding individual trocars were taken out on direct visualization unless the umbilical trocar wounds were then closed with 0 Vicryl interrupted suture and the fascia and umbilical area and 4-0 Monocryl was used to approximate the skin edges on all trocar site Steri-Strips applied procedure was tolerated well by the patient estimated blood loss 35 cc I talked to her and another family member in the waiting area and told her specifically that her dissection was difficult and we had some oozing there in the past we will keep the patient until tomorrow they agreed Surgeon Joe Beckman MD, FACS Group Sales Coordinator o Estimated Blood Loss 35 Findings Consistent with Post-Op Diagnosis Acute nonruptured Specimens appendix Drains None Complications Poor suction devices Indications Right lower quadrant pain acute appendicitis Description of Procedure merda I attest to the content of the Intraoperative Record and any orders documented therein. Any exceptions are noted below.
[2022-08-31] MEDS ORDERED: ONDANSETRON INJ 2 MG/ML 2 ML VIAL ONE (19:59)
[2022-08-31] MEDS ORDERED: PROMETHAZINE HCL 6.25 MG in SODIUM CHLORIDE 0.9% 50 ML IV PRN (20:48)
[2022-08-31] MEDS: MoRPHine SULFATE 4 MG/ML 1 ML CARP\\VIAL IV PRN (20:57)
[2022-08-31] MEDS: LACTATED RINGER'S 1,000 ML IV SCH (20:57)
[2022-09-01] MEDS: LACTATED RINGER'S 1,000 ML IV SCH ×2 (02:11→09:54)
[2022-09-01] MEDS: MoRPHine SULFATE 4 MG/ML 1 ML CARP\\VIAL IV PRN (02:11)
--- NOTE | 2022-09-01 05:47 | Surgery Progress Note ---
Date of Service September 01, 2022 Assessment & Plan (1) Acute appendicitis: Plan: Status post appendectomy on 08/31/2022 (postop day #1) Continue analgesics Continue antiemetics Continue IV fluid for hydration until oral intake is adequate We will allow clear liquids this morning Increase activity as able Likely discharge home if she tolerates further diet advancement Admission and Anticipated Discharge Date Admission Date: August 31, 2022 Supervising Physician Co-Signing Physician Notes As per Duncan Forte physician trust administrative assistant Patient resting comfortably in bed talking on the phone without any issues Intraoperative findings were discussed with the patient The abdomen is soft with the expected abdominal wall discomfort Lab noted Patient reluctant to go home today We will increase diet increase activity Subjective Patient is resting comfortably in bed. She denies any nausea or vomiting. She has not had a bowel movement or passed flatus since surgery. She denies any worsening abdominal pain but does note some soreness at her surgical incisions. Physical Exam Gastrointestinal (Abdomen): Abdomen is soft with minimal distention. Bowel sounds are hypoactive. Incisions are clean, dry, intact. She has appropriate tenderness near surgical incisions. Results & Data ([facility]) Vital Signs (Past 12 Hours) Vital Signs Temp Pulse Pulse Resp BP Pulse Ox O2 Del Method 08/31/22 20:09 36.7 C 68 16 105/72 100 Room Air 09/01/22 03:53 36.5 C 67 14 93/57 L 96 Room Air 08/31/22 23:13 36.6 C 88 15 96/60 L 97 Room Air 08/31/22 22:18 36.8 C 78 15 100/62 96 Room Air 08/31/22 21:08 36.6 C 78 15 101/65 98 Room Air 08/31/22 20:38 36.3 C L 72 15 106/72 100 Room Air 08/31/22 19:45 62 15 105/68 100 Room Air 08/31/22 19:35 36.8 C 65 17 110/61 100 Room Air 08/31/22 19:25 63 17 109/54 L 100 Oxymask 08/31/22 19:15 61 12 114/59 L 100 Oxymask 08/31/22 19:05 62 12 124/52 L 100 Oxymask 08/31/22 18:55 36.0 C L 66 12 111/54 L 100 Oxymask O2 Flow Rate 08/31/22 20:09 02/19/23 03:53 08/31/22 23:13 08/31/22 22:18 08/31/22 21:08 08/31/22 20:38 08/31/22 19:45 08/31/22 19:35 08/31/22 19:25 4 08/31/22 19:15 4 08/31/22 19:05 6 08/31/22 18:55 6 PG Care Time/CCT Total # of Minutes Spent Total Time Spent with Patient: Total time spent is greater than 50% in coordination of care (as documented) at patient's floor/unit and/or counseling patient: Coding Level of Care Code None Diagnoses Acute appendicitis K35.30 Acute appendicitis type: with localized peritonitis Appendicitis abscess presence: without abscess Appendicitis gangrene presence: unspecified whether gangrene present Appendicitis perforation presence: without perforation (1) Acute appendicitis Acute appendicitis type: with localized peritonitis Appendicitis abscess presence: without abscess Appendicitis gangrene presence: unspecified whether gangrene present Appendicitis perforation presence: without perforation Qualified Code(s): K35.30 - Acute appendicitis with localized peritonitis, without perforation or gangrene
[2022-09-01] MEDS: oxyCODONE/ACETAMINOPHEN 5mg/325mg TAB PO PRN ×4 (07:56→23:20)
[2022-09-01 08:34] LABS: Basophils # (auto) 0.02 K/uL (0-0.2); Basophils % (auto) 0.2 %; Eosinophils # (auto) 0.01 K/uL (0-0.50); Eosinophils % (auto) 0.1 %; Hematocrit (blood only) 36.2 % (37.0-47.0); Hemoglobin 12.2 g/dl (12.0-16.0); Immature Granulocytes # (auto) 0.05 K/uL (0.01-0.20); Immature Granulocytes % (auto) 0.5 %; Lymphocytes # (auto) 1.95 K/uL (1.2-3.4); Lymphocytes % (auto) 19.5 %; Mean Corpuscular Hemoglobin 30.5 pg (25.0-34.0); Mean Corpuscular Hgb Conc 33.7 g/dL (32.0-36.0); Mean Corpuscular Volume 90.5 fL (80.0-100.0); Mean Platelet Volume 10.4 fL (9.4-12.4); Monocytes # (auto) 0.55 K/uL (0.11-0.59); Monocytes % (auto) 5.5 %; Neutrophils % (auto) 74.2 %; Platelet Count 233 K/uL (130-400); RDW Coefficient of Variation 12.2 % (11.5-14.5); RDW Standard Deviation 40.4 fL (36.4-46.3); White Blood Count 9.98 K/ul (4.8-10.8)
[2022-09-01] MEDS ORDERED: oxyCODONE/ACETAMINOPHEN 5mg/325mg TAB PO PRN (10:32)
[2022-09-01] MEDS ORDERED: MoRPHine SULFATE 4 MG/ML 1 ML CARP\\VIAL IV PRN (10:32)
--- NOTE | 2022-09-02 08:17 | Surgery Progress Note ---
Date of Service September 02, 2022 Assessment & Plan (1) Acute appendicitis: Plan: Plan discharge today instruction already been given return to our office in 1 week Admission and Anticipated Discharge Date Admission Date: August 31, 2022 Subjective And not been up much yesterday saying the pain was too uncomfortable She would like to go home today Physical Exam Physical Exam: Alert coherent laying comfortably in bed Sclera nonicteric The abdomen soft voluntary guarding noted Results & Data ([facility]) Vital Signs (Past 12 Hours) Vital Signs Temp Pulse Resp BP Pulse Ox O2 Del Method 09/02/22 07:03 36.6 C 64 16 103/69 96 Room Air 09/01/22 21:08 36.5 C 65 16 96/58 L 98 Room Air (1) Acute appendicitis Acute appendicitis type: with localized peritonitis Appendicitis abscess presence: without abscess Appendicitis gangrene presence: unspecified whether gangrene present Appendicitis perforation presence: without perforation Qualified Code(s): K35.30 - Acute appendicitis with localized peritonitis, without perforation or gangrene
[2022-09-02] MEDS: oxyCODONE/ACETAMINOPHEN 5mg/325mg TAB PO PRN ×2 (08:32→13:57)
--- NOTE | 2022-09-02 10:00 | Discharge Summary ---
Date of Service September 02, 2022 Admission HPI Per Admitting Provider This pleasant 37-year-old female here with her significant other started developing lower abdominal pain approximately 48 hours ago with associated nausea she initially thought that it was related to her menses since she has not had a menstrual cycle of any routine since her she was seen by urgent care and referred here for CT scan showed findings of acute appendicitis possible some necrosis of the wall Principal Diagnosis acute appendicitis Discharge Exam awake/alert, no distress Gastrointestinal (Abdomen) Inspection/Auscultation: + abdominal surgical incision (c/d/i) Percussion/Palpation: + abdomen tender (expected ksenia incisional discomfort to palpation ) and abdomen soft Discharge Data Allergies Allergy/AdvReac Type Severity Reaction Status Date / Time No Known Allergies Allergy Verified 05/03/21 10:50 Consultations 08/31/22 15:02 Consult General Surgery Stat Procedures Performed Operation Date: 08/31/22 16:00 Actual Procedures p Laparoscopic Appendectomy(Not Applicable) - Joe Beckman MD, FACS Ordered Studies 08/31/22 12:42 CT abd pelvis IV con only Stat Hospital Course (1) Acute appendicitis: This is a 37yF who presented to the [facility] ED on 08/31/22 with abdominal pain. Workup in the ED showed a WBC of 12.[address] a/p concerning for acute appendicitis. The patient was tender to palpation in the RLQ. Patient was made NPO with IVF and booked for the OR. On 2 the patient went to the OR with Dr. Beckman for a laparoscopic appendectomy. The patient tolerated the procedure well, see operative report for full details. Post operatively the patient's diet was advanced as tolerated, pain managed on prn meds, and incisions talya an/dry/intact. She stayed an additional night due to pain control. On POD#2 the patient was deemed stable for discharge to home. Instructed to follow up in clinic within 1 week. Total Time Total Time Spent Total Time Spent (In Minutes): 10 Discharge Plan Discharge Items Patient Disposition: Home - Self-Care Reason For Visit: POST OP Discharge Diagnosis: appendicitis Activity: As commented below Activity Comment: walk daily Lifting: No more than 10 pounds Bathing: May shower/bathe in 3 days Driving/Machine Use: When cleared by your surgeon Non-emergency contact: Surgeon Call non-emergency contact if: you have any medication questions Follow-up/Referrals: Joe Beckman MD, FACS [Surgeon] - 09/10/22 1:30 pm (Call office for an appointment in 1-2 weeks) PCP,NO [Primary Care Provider] - Diet: Regular Addtl Attending Provider Instructions: Call office with questions Pending Studies at Discharge: No Stand-Alone Forms: My [facility] [employer], Smoking Cessation Medications and DC Order Prescriptions: New oxycodone-acetaminophen [Percocet] 5-325 mg tablet 1 tab PO Q6H PRN (Reason: pain) Qty: 10 0RF Continued sertraline 25 mg tablet 25 mg PO DAILY Qty: 90 3RF prenat.vits,pari,pid-okar-gstky Tablet 1 tab PO DAILY Discharge Orders: Discharge Order (Routine); Ordered 09/02/22 Ordered By: Joe Pollack/Other Patient Handouts: Appendectomy Admission Data Admit Date/Time: 08/31/22 19:19 Attending Provider: Joe Beckman Admit Provider: Joe Beckman Primary Care Provider: EMMIE,GRISELDA Other Providers: Joe Beckman Other Interventions: Discharge Summary Assessment (RN) Last Done: 09/02/22 16:12 Coding Level of Care Code HOSP INP/OBS DISCH 30 MIN/LESS Diagnoses Acute appendicitis K35.30 Acute appendicitis type: with localized peritonitis Appendicitis abscess presence: without abscess Appendicitis gangrene presence: unspecified whether gangrene present Appendicitis perforation presence: without perforation
== END 2022-09-02 16:44 | disposition home or self-care (01) | DRG 343 ==
LOC: ED 12:18 → OR 16:34 → 3W 19:19